=== PATIENT | female | born 1960 | race Caucasian/White ===

== ENCOUNTER 2018-05-20 09:40 | Outpatient (CLI) | payer OTHER | END 2018-05-20 09:48 | disposition home or self-care (01) | LOC: LAB 09:40 | DX: C50.212 Malignant neoplasm of upper-inner quadrant of left female breast (principal) ==

== ENCOUNTER → 2018-11-16 09:48 | Outpatient (CLI) | payer OTHER | END | disposition home or self-care (01) | LOC: LAB 09:48 | DX: C50.212 Malignant neoplasm of upper-inner quadrant of left female breast (principal) ==

== ENCOUNTER → 2019-05-16 09:23 | Outpatient (CLI) | payer OTHER | END | disposition home or self-care (01) | LOC: LAB 09:23 | DX: C50.212 Malignant neoplasm of upper-inner quadrant of left female breast (principal) ==

== ENCOUNTER 2019-09-04 09:17 | Outpatient (CLI) | payer OTHER | END 2019-09-04 09:23 | disposition home or self-care (01) | LOC: SONOGRAMA 09:17 | DX: C50.212 Malignant neoplasm of upper-inner quadrant of left female breast (principal); R59.1 Generalized enlarged lymph nodes ==

== ENCOUNTER 2020-04-29 08:41 | Outpatient (CLI) | payer OTHER | END 2020-04-29 08:59 | disposition home or self-care (01) | LOC: NUCLEAR 08:41 | PROVIDERS: ATTEND Internal Medicine Hematology & Oncology | DX: C50.212 Malignant neoplasm of upper-inner quadrant of left female breast (principal); C77.0 Secondary and unspecified malignant neoplasm of lymph nodes of head, face and neck | CPT/HCPCS: 78815; A9552 ==

== ENCOUNTER 2020-08-28 09:43 | Outpatient (CLI) | payer OTHER | END 2020-08-28 10:08 | disposition home or self-care (01) | LOC: NUCLEAR 09:43 | PROVIDERS: ATTEND Internal Medicine Hematology & Oncology | DX: C50.212 Malignant neoplasm of upper-inner quadrant of left female breast (principal); C77.0 Secondary and unspecified malignant neoplasm of lymph nodes of head, face and neck | CPT/HCPCS: 78815; A9552 ==

== ENCOUNTER 2021-02-26 08:28 | Outpatient (CLI) | payer OTHER | END 2021-02-26 08:30 | disposition home or self-care (01) | LOC: NUCLEAR 08:28 | PROVIDERS: ATTEND Internal Medicine Hematology & Oncology | DX: C50.212 Malignant neoplasm of upper-inner quadrant of left female breast (principal); C77.0 Secondary and unspecified malignant neoplasm of lymph nodes of head, face and neck | CPT/HCPCS: 78815; A9552 ==

== ENCOUNTER 2021-09-22 07:50 | Outpatient (CLI) | payer OTHER | END 2021-09-22 07:55 | disposition home or self-care (01) | LOC: NUCLEAR 07:50 | PROVIDERS: ATTEND Internal Medicine Hematology & Oncology | DX: C50.212 Malignant neoplasm of upper-inner quadrant of left female breast (principal); C77.0 Secondary and unspecified malignant neoplasm of lymph nodes of head, face and neck ==

== ENCOUNTER 2022-03-18 07:51 | Outpatient (CLI) | payer OTHER | END 2022-03-18 08:01 | disposition home or self-care (01) | LOC: NUCLEAR 07:51 | PROVIDERS: ATTEND Internal Medicine Hematology & Oncology | DX: C50.212 Malignant neoplasm of upper-inner quadrant of left female breast (principal); C77.0 Secondary and unspecified malignant neoplasm of lymph nodes of head, face and neck | CPT/HCPCS: 78815; A9552 ==

== ENCOUNTER 2022-04-08 09:53 | Outpatient (CLI) | payer OTHER | END 2022-04-08 09:55 | disposition home or self-care (01) | LOC: NUCLEAR 09:53 | PROVIDERS: ATTEND Internal Medicine Hematology & Oncology | DX: C50.212 Malignant neoplasm of upper-inner quadrant of left female breast (principal); C77.0 Secondary and unspecified malignant neoplasm of lymph nodes of head, face and neck | CPT/HCPCS: 78472; A9560 ==

== ENCOUNTER 2022-08-24 07:49 | Outpatient (CLI) | payer OTHER | END 2022-08-24 08:03 | disposition home or self-care (01) | LOC: NUCLEAR 07:49 | PROVIDERS: ATTEND Internal Medicine Hematology & Oncology | DX: C50.212 Malignant neoplasm of upper-inner quadrant of left female breast (principal); C77.0 Secondary and unspecified malignant neoplasm of lymph nodes of head, face and neck | CPT/HCPCS: 78816; A9552 ==

== ENCOUNTER 2022-11-24 07:57 | Outpatient (CLI) | payer OTHER | END 2022-11-24 07:59 | disposition home or self-care (01) | LOC: NUCLEAR 07:57 | PROVIDERS: ATTEND Internal Medicine Hematology & Oncology | DX: C50.212 Malignant neoplasm of upper-inner quadrant of left female breast (principal); C77.0 Secondary and unspecified malignant neoplasm of lymph nodes of head, face and neck | CPT/HCPCS: 78815; A9552 ==

== ENCOUNTER 2023-05-15 11:34 | Inpatient (IN) | payer OTHER ==
[~2023-05-15] VITALS: Ht 162.6 cm; Wt 103.4 kg
--- NOTE | 2023-05-15 12:43 | NUR ---
PACIENTE REFIERE 4 TY CON FIEBRE Y DIARREAS, LUEGO DE QUIMIOTERAPIA
[2023-05-15] MEDS ORDERED: LIPITOR40 M1 PO (12:51)
[2023-05-15] MEDS ORDERED: METOPROLOL SUCC25 MG PO (12:51)
[2023-05-15] MEDS ORDERED: ECOTRIN81 MG (12:52)
--- NOTE | 2023-05-15 14:27 | NUR ---
PTE EVALAUDO POR DR. MIMS SE EJECUTA ORDEN MEDICA, SE BUTCH MUESTRA BAJO MEDIDAS ASEPTCAS, PTE REFIERE ENTENDER
[2023-05-15 15:29] LABS: HEMATOCRIT 33.7 % (36.0-45.00); HEMOGLOBIN 11.7 g/dL (12.0-15.00); MEAN CORPUSCULAR HEMOGLOBIN 30.9 pg (27.00-32.0); MEAN CORPUSCULAR HGB CONC 34.8 g/dl (32.0-36.0); PLATELET COUNT 228 K/uL (150-450); RED BLOOD COUNT 3.79 M/uL (4.00-6.00); RED CELL DISTRIBUTION WIDTH 13.9 % (11.5-14.5)
[2023-05-15 15:31] LABS: ALBUMIN 3.1 gm/dL (3.4-5.0); BILIRUBIN TOTAL 0.59 mg/dL (0.3-1.2); CREATININE SERUM 0.72 mg/dL (0.55-1.02); GFR 82.08; GLOBULINA 4.6 G/DL (2.4-3.5); POTASSIUM 3.65 mEq/L (3.5-5.1); TOTAL PROTEIN 7.7 gm/dL (6.4-8.2)
[2023-05-15 20:51] LABS: INR 1.22; PARTIAL THROMBOPLASTIN TIME 30.5 SECONDS (22.0-34.0); PROTHROMBIN TIME 12.6 SECONDS (9.0-11.5)
[2023-05-15 20:56] LABS: C-REACTIVE PROTEIN 10.9 MG/DL (0.00-0.29)
[2023-05-15 23:21] LABS: PH,URINE 5.5 (5.0-8.0); URINE APPEARANCE Clear; URINE BILIRRUBIN Small (NEGATIVE); URINE BLOOD Negative; URINE COLOR Dark Yellow; URINE GLUCOSE Negative (NEGATIVE); URINE LEUKOCYTE Trace; URINE NITRATE Negative; URINE PROTEIN 30 (NEGATIVE)
[2023-05-15 23:24] LABS: URINE BACTERIA 8.8 uL (0.0-1933); URINE RBC 20.4 uL (0.0-20.8); URINE WBC 2.9 uL (0.0-23.2)
[2023-05-16 20:02] LABS: PH,URINE 6.5 (5.0-8.0); URINE APPEARANCE Turbid; URINE BILIRRUBIN Small (NEGATIVE); URINE BLOOD Negative; URINE COLOR Dark Yellow; URINE GLUCOSE Negative (NEGATIVE); URINE LEUKOCYTE Trace; URINE NITRATE Negative; URINE UROBILINOGEN 0.2 E.U./dl
[2023-05-16 20:03] LABS: URINE BACTERIA 866.8 uL (0.0-1933); URINE EPITHELIAL CELLS 58.5 uL (0.0-38.8); URINE WBC 7.2 uL (0.0-23.2)
[2023-05-16 20:20] LABS: URINE PROTEIN 100 (NEGATIVE)
[2023-05-17 07:43] LABS: HEMATOCRIT 33.3 % (36.0-45.00); HEMOGLOBIN 11.4 g/dL (12.0-15.00); MEAN CELL VOLUME 88.8 fL (80.00-100.00); MEAN CORPUSCULAR HEMOGLOBIN 30.5 pg (27.00-32.0); MEAN CORPUSCULAR HGB CONC 34.3 g/dl (32.0-36.0); PLATELET COUNT 197 K/uL (150-450); RED BLOOD COUNT 3.75 M/uL (4.00-6.00); RED CELL DISTRIBUTION WIDTH 13.7 % (11.5-14.5)
[2023-05-17 08:09] LABS: ALBUMIN 2.4 gm/dL (3.4-5.0); BILIRUBIN TOTAL 0.43 mg/dL (0.3-1.2); CALCIUM 8.3 mg/dL (8.5-10.1); CREATININE SERUM 0.44 mg/dL (0.55-1.02); GFR 144.89; GLOBULINA 3.7 G/DL (2.4-3.5); POTASSIUM 4.14 mEq/L (3.5-5.1); TOTAL PROTEIN 6.1 gm/dL (6.4-8.2)
[2023-05-17 08:50] LABS: C-REACTIVE PROTEIN 22.7 MG/DL (0.00-0.29); PHOSPHOROUS 1.7 mg/dL (2.5-4.9)
[2023-05-19 05:06] LABS: GIARDIA LAMBLIA EIA Negative (Negative)
[2023-05-19 07:02] LABS: HEMATOCRIT 34.7 % (36.0-45.00); HEMOGLOBIN 12.1 g/dL (12.0-15.00); MEAN CELL VOLUME 88.5 fL (80.00-100.00); MEAN CORPUSCULAR HEMOGLOBIN 30.8 pg (27.00-32.0); MEAN CORPUSCULAR HGB CONC 34.8 g/dl (32.0-36.0); PLATELET COUNT 239 K/uL (150-450); RED BLOOD COUNT 3.92 M/uL (4.00-6.00); RED CELL DISTRIBUTION WIDTH 14.1 % (11.5-14.5)
[2023-05-20 07:18] LABS: HEMOGLOBIN 11.6 g/dL (12.0-15.00); MEAN CELL VOLUME 89.2 fL (80.00-100.00); MEAN CORPUSCULAR HEMOGLOBIN 30.5 pg (27.00-32.0); MEAN CORPUSCULAR HGB CONC 34.2 g/dl (32.0-36.0); PLATELET COUNT 276 K/uL (150-450); RED BLOOD COUNT 3.81 M/uL (4.00-6.00)
[2023-05-21 09:07] LABS: campy Final report (.)
== END 2023-05-20 13:25 | disposition home or self-care (01) | DRG 391 ==
LOC: ER 11:34 → SURG 18:48 → SURH 18:48 → SURG 05-17 11:08
PROVIDERS: General Practice; Internal Medicine Infectious Disease; ADMIT Internal Medicine; ATTEND Internal Medicine
PROC: BW21ZZZ Computerized Tomography (CT Scan) of Abdomen and Pelvis (ICD-10-PCS; principal; 2023-05-15)
PROC: 02HV33Z Insertion of Infusion Device into Superior Vena Cava, Percutaneous Approach (ICD-10-PCS; 2023-05-16)
PROC: 8E0ZXY6 Isolation (ICD-10-PCS; 2023-05-16)
DX: K52.89 Other specified noninfective gastroenteritis and colitis (principal); D61.810 Antineoplastic chemotherapy induced pancytopenia; C78.7 Secondary malignant neoplasm of liver and intrahepatic bile duct; C50.412 Malignant neoplasm of upper-outer quadrant of left female breast; D70.8 Other neutropenia; R50.81 Fever presenting with conditions classified elsewhere

== ENCOUNTER 2023-07-04 08:01 | Outpatient (CLI) | payer OTHER ==
[~2023-07-04 08:01] MED LIST: ECOTRIN81 MG; LIPITOR40 M1 PO; METOPROLOL SUCC25 MG PO
== END 2023-07-04 08:02 | disposition home or self-care (01) ==
LOC: NUCLEAR 08:01
PROVIDERS: ATTEND Internal Medicine Hematology & Oncology
DX: C50.212 Malignant neoplasm of upper-inner quadrant of left female breast (principal); C77.0 Secondary and unspecified malignant neoplasm of lymph nodes of head, face and neck; C78.7 Secondary malignant neoplasm of liver and intrahepatic bile duct; G62.9 Polyneuropathy, unspecified

== ENCOUNTER 2023-10-02 10:41 | Inpatient (IN) | payer OTHER ==
[~2023-10-02] VITALS: Ht 167.6 cm; Wt 127.0 kg
[2023-10-02] MEDS ORDERED: 0.9 % SODIUM CHLORIDE 1,000 ML IV STA (12:24)
[2023-10-02 13:02] LABS: HEMATOCRIT 38.4 % (36.0-45.00); HEMOGLOBIN 13.5 g/dL (12.0-15.00); MEAN CELL VOLUME 95.8 fL (80.00-100.00); MEAN CORPUSCULAR HEMOGLOBIN 33.7 pg (27.00-32.0); MEAN CORPUSCULAR HGB CONC 35.2 g/dl (32.0-36.0); PLATELET COUNT 333 K/uL (150-450); RED BLOOD COUNT 4.01 M/uL (4.00-6.00)
[2023-10-02 13:18] LABS: RED CELL DISTRIBUTION WIDTH 24.6 % (11.5-14.5)
[2023-10-02 14:11] LABS: INR 1.94; PARTIAL THROMBOPLASTIN TIME 36.6 SECONDS (22.0-34.0)
[2023-10-02 14:18] LABS: ALBUMIN 1.5 gm/dL (3.4-5.0); CALCIUM 7.9 mg/dL (8.5-10.1); CREATININE SERUM 1.26 mg/dL (0.55-1.02); GFR 42.89; POTASSIUM 3.51 mEq/L (3.5-5.1)
[2023-10-02 14:33] LABS: BILIRUBIN,UNCONJUGATED 2.95 mg/dL (0.0-0.6)
[2023-10-02 14:34] LABS: BILIRUBIN TOTAL 25.65 mg/dL (0.3-1.2); BILIRUBIN,CONJUGATED 22.7 mg/dL (0.0-0.2)
[2023-10-02 14:35] LABS: PROTHROMBIN TIME 19.4 SECONDS (9.0-11.5)
[2023-10-02 14:47] LABS: PH,URINE 5.5 (5.0-8.0); URINE APPEARANCE Cloudy; URINE BILIRRUBIN Large (NEGATIVE); URINE BLOOD Negative; URINE COLOR Dark Yellow; URINE GLUCOSE Negative (NEGATIVE); URINE LEUKOCYTE Small; URINE NITRATE Positive; URINE PROTEIN Trace (NEGATIVE); URINE UROBILINOGEN 0.2 E.U./dl
[2023-10-02 14:51] LABS: URINE BACTERIA 74.3 uL (0.0-1933); URINE EPITHELIAL CELLS 23.8 uL (0.0-38.8); URINE RBC 40.2 uL (0.0-20.8); URINE WBC 2.9 uL (0.0-23.2)
[2023-10-03] MEDS ORDERED: FAMOTIDINE/PF 20 MG/2 ML VIAL IV SCH (13:15)
[2023-10-03] MEDS ORDERED: PIPERACILLIN/TAZOBACTAM SODIUM 3.375 GM in DEXTROSE 5 % IN WATER 100 ML IV SCH (13:15)
[2023-10-04 08:18] LABS: HEMATOCRIT 30.4 % (36.0-45.00); HEMOGLOBIN 10.6 g/dL (12.0-15.00); MEAN CELL VOLUME 97.4 fL (80.00-100.00); MEAN CORPUSCULAR HEMOGLOBIN 33.9 pg (27.00-32.0); PLATELET COUNT 221 K/uL (150-450); RED BLOOD COUNT 3.12 M/uL (4.00-6.00); RED CELL DISTRIBUTION WIDTH 24.6 % (11.5-14.5)
[2023-10-04 09:21] LABS: ALBUMIN 1.1 gm/dL (3.4-5.0); CREATININE SERUM 1.22 mg/dL (0.55-1.02); GFR 44.52; POTASSIUM 3.9 mEq/L (3.5-5.1)
[2023-10-04 09:33] LABS: CALCIUM 6.3 mg/dL (8.5-10.1)
[2023-10-04 09:34] LABS: BILIRUBIN TOTAL 21.53 mg/dL (0.3-1.2)
[2023-10-04 09:42] LABS: GLOBULINA 3.5 G/DL (2.4-3.5); TOTAL PROTEIN 4.6 gm/dL (6.4-8.2)
[2023-10-04] MEDS ORDERED: MORPHINE SULFATE 2 MG/ML CARTRIDGE IV PRN ×2 (09:45→19:00)
[2023-10-04] MEDS ORDERED: KETOROLAC TROMETHAMINE 30 MG VIAL IV PRN (10:30)
[2023-10-04] MEDS ORDERED: 0.9 % SODIUM CHLORIDE 1,000 ML IV SCH (11:15)
[2023-10-04 13:31] LABS: ALBUMIN 1.6 gm/dL (3.4-5.0); CALCIUM 8.5 mg/dL (8.5-10.1); CREATININE SERUM 1.84 mg/dL (0.55-1.02); GFR 27.71; GLOBULINA 3.4 G/DL (2.4-3.5); POTASSIUM 3.94 mEq/L (3.5-5.1)
[2023-10-04 14:14] LABS: BILIRUBIN TOTAL 27.28 mg/dL (0.3-1.2)
[2023-10-04] MEDS ORDERED: PANTOPRAZOLE SODIUM 40 MG TABLET.DR PO SCH (19:00)
[2023-10-04] MEDS ORDERED: VITAMIN B COMPLEX 1 EACH PO SCH (19:01)
[2023-10-05] MEDS ORDERED: CEFTRIAXONE SODIUM 2,000 MG in 0.9 % SODIUM CHLORIDE 100 ML IV SCH (09:00)
[2023-10-05 12:12] LABS: hav igm Negative (Negative); hcv Non Reactive (Non Reactive); hep b c Negative (Negative)
[2023-10-06] MEDS ORDERED: NOREPINEPHRINE BITARTRATE 1 MG/ML AMPUL IV SCH (01:30)
[2023-10-06] MEDS ORDERED: NOREPINEPHRINE BITARTRATE 8 MG in DEXTROSE 5 % IN WATER 250 ML IV SCH (03:30)
[2023-10-06 08:08] LABS: ALBUMIN 1.5 gm/dL (3.4-5.0); CALCIUM 8.2 mg/dL (8.5-10.1); CREATININE SERUM 3.57 mg/dL (0.55-1.02); GFR 12.89; GLOBULINA 3.4 G/DL (2.4-3.5); POTASSIUM 4.29 mEq/L (3.5-5.1); TOTAL PROTEIN 4.9 gm/dL (6.4-8.2)
[2023-10-06 08:30] LABS: BILIRUBIN TOTAL 27.46 mg/dL (0.3-1.2)
[2023-10-06 13:51] LABS: HEMATOCRIT 41.4 % (36.0-45.00); HEMOGLOBIN 14.2 g/dL (12.0-15.00); MEAN CELL VOLUME 97.7 fL (80.00-100.00); MEAN CORPUSCULAR HEMOGLOBIN 33.6 pg (27.00-32.0); MEAN CORPUSCULAR HGB CONC 34.4 g/dl (32.0-36.0); PLATELET COUNT 283 K/uL (150-450); RED BLOOD COUNT 4.23 M/uL (4.00-6.00); RED CELL DISTRIBUTION WIDTH 23.5 % (11.5-14.5)
[2023-10-07] MEDS ORDERED: MORPHINE SULFATE 2 MG/ML CARTRIDGE IV PRN (11:30)
[2023-10-08] MEDS ORDERED: MORPHINE SULFATE 4 MG/ML CARTRIDGE IV SCH (14:00)
== END 2023-10-09 23:30 | disposition expired | DRG 442 ==
LOC: ER 10:41 → SURH 10-03 14:28 → SEC-K 10-03 14:28 → SURH 10-03 16:29
PROVIDERS: General Practice; Internal Medicine Nephrology; ADMIT Internal Medicine; ATTEND Internal Medicine
PROC: BW40ZZZ Ultrasonography of Abdomen (ICD-10-PCS; principal; 2023-10-02)
PROC: 02HV33Z Insertion of Infusion Device into Superior Vena Cava, Percutaneous Approach (ICD-10-PCS; 2023-10-04)
DX: E80.6 Other disorders of bilirubin metabolism (principal); C78.7 Secondary malignant neoplasm of liver and intrahepatic bile duct; N17.9 Acute kidney failure, unspecified; R18.8 Other ascites; R57.9 Shock, unspecified; C50.412 Malignant neoplasm of upper-outer quadrant of left female breast; D63.0 Anemia in neoplastic disease; D64.81 Anemia due to antineoplastic chemotherapy; K74.60 Unspecified cirrhosis of liver; D70.9 Neutropenia, unspecified; Z92.21 Personal history of antineoplastic chemotherapy; Z66 Do not resuscitate